=== PATIENT | female | born 1945 | race African-American/Black ===

== ENCOUNTER 2016-09-24 12:18 | Day surgery (SDC) | payer MEDICARE, OTHER ==
[~2016-09-24] VITALS: Ht 162.6 cm; Wt 66.5 kg
[~2016-09-24 12:18] MED LIST: ASPI81 PO; GLUCTAB PO; HYDR-2768 PO; METH750T2 PO; MOBI15TA PO; ROSU20 PO
[2016-09-24] MEDS ORDERED: NS 1000P @30 MLS/HR (KVO) IV SCH (13:00)
[2016-09-24 13:05] VITALS: BP 115/89; PULSE 110; RESP 18; TEMP 98.4; O2SAT 99
[2016-09-24] MEDS ORDERED: METF500T PO (13:17)
[2016-09-24] MEDS ORDERED: LORA1TAB12 PO (13:17)
[2016-09-24] MEDS ORDERED: GLIM2TAB PO (13:17)
[2016-09-24] MEDS ORDERED: ROSU40 PO (13:17)
[2016-09-24] MEDS ORDERED: ASPI1TAB69 PO (13:17)
[2016-09-24] MEDS ORDERED: HYDR25TA5 PO (13:17)
[2016-09-24] MEDS ORDERED: FLUT5SPR (13:17)
[2016-09-24] MEDS ORDERED: MULT1TAB84 PO (13:17)
[2016-09-24] MEDS ORDERED: AMOX875T PO (13:17)
[2016-09-24] MEDS ORDERED: HEPARIN-NS/PF INJ 500 ML ONE (13:23)
[2016-09-24] MEDS ORDERED: NITROGLYCERIN INJ 5 ML ONE (13:23)
[2016-09-24] MEDS ORDERED: MIDAZOLAM HCL 2 MG/2 ML VIAL ONE (13:23)
[2016-09-24] MEDS ORDERED: HEPARIN SODIUM - IV 10,000 UNITS/10 ML VIAL ONE (13:23)
[2016-09-24 13:34] LABS: AUTOMATED NEUTROPHIL # 4.3 TH/MM3 (1.8-7.7); BASOPHIL % 0.5 % (0.0-2.0); EOSINOPHIL # 0.1 TH/MM3 (0-0.4); EOSINOPHIL % 1.3 % (0.0-4.0); HEMATOCRIT 43.5 % (35.0-46.0); HEMO FLAGS DIFF FINAL; LYMPH % 31.4 % (9.0-44.0); LYMPHOCYTE # 2.3 TH/MM3 (1.0-4.8); MEAN CELL VOLUME 85.5 FL (80.0-100.0); MEAN CORPUSCULAR HEMOGLOBIN 28.3 PG (27.0-34.0); MEAN CORPUSCULAR HGB CONC 33.1 % (32.0-36.0); MONO % 8.4 % (0.0-8.0); NEUT % 58.4 % (16.0-70.0); PLATELET COUNT 380 TH/MM3 (150-450); RED BLOOD COUNT 5.09 MIL/MM3 (4.00-5.30); RED CELL DISTRIBUTION WIDTH 14.6 % (11.6-17.2); WHITE BLOOD COUNT 7.3 TH/MM3 (4.0-11.0)
[2016-09-24 13:48] LABS: APTT (PATIENT) 24.5 SEC (24.3-30.1); PROTHROMBIN TIME - PATIENT 10.9 SEC (9.8-11.6)
[2016-09-24 13:55] LABS: BICARBONATE 28.9 MEQ/L (21.0-32.0); POTASSIUM 3.6 MEQ/L (3.5-5.1)
[2016-09-24] MEDS ORDERED: MISC INFORMATION XX ONE (14:15)
[2016-09-24] MEDS ORDERED: BACITRACIN OINT 0.9 GM PKT TOP ONE (14:15)
[2016-09-24] MEDS ORDERED: oxyCODONE/ACETAMINOPHEN 5 MG/325 MG TAB PO PRN ×2 (14:15)
[2016-09-24] MEDS ORDERED: ONDANSETRON HCL 4 MG/2 ML VIAL IVP PRN (14:15)
[2016-09-24] MEDS ORDERED: SODIUM CHLOR 0.9% 1000 ML INJ 1,000 ML IV SCH (15:00)
[2016-09-24] MEDS ORDERED: IOHEXOL 350 MG/ML 100 ML BTL (for Cath Lab) OTHER ONE (16:01)
--- NOTE | 2016-09-25 07:02 | MB ---
cc: OLEGARIO SUTTON MD, HANSCY M.D. DRIGGERS, WESLEY M.D. DATE OF CONSULTATION 09/24/2016 REASON FOR CONSULTATION Wide complex tachyarrhythmia, symptomatic. History of Present Illness 8 Mrs. Payton is a 71-year-old -[place] female with history of high blood pressure, diabetes mellitus, hyperlipidemia, began a couple of days ago with tachyarrhythmia and chest tightness. She was in the supermarket, felt like she was going to pass out. She called Dr. Jose and went to his office. She was found with a wide complex tachyarrhythmia. That resolved. She was sent for a stress test at [facility]. The study was performed by Dr. Sutton. After less than a minute on the treadmill, the patient developed a wide complex tachyarrhythmia with a rate of around 170 beats per minute. That resolved with carotid sinus massage. Left heart catheterization was performed that indicated no occlusion, normal ejection fraction. I was consulted for evaluation and management. The chart was reviewed. The patient was evaluated. ALLERGIES NAPROXEN. TRAMADOL. SOCIAL HISTORY Negative for smoking and drinking. FAMILY HISTORY Noncontributory to her current medical condition. MEDICATIONS 1. Lorazepam. 2. Metformin 500 mg p.o. three times a day. 3. Flonase. 4. Crestor 40 mg a day. 5. She is on multivitamin. 6. Aspirin 81 mg a day. 7. Glimepiride 2 mg a day. 8. Hydrochlorothiazide 25 mg a day. 9. She is taking amoxicillin 850 mg twice per day for upper respiratory infection. REVIEW OF SYSTEMS Currently she refers no chest pain, no chest discomfort. No palpitation. No fever. PHYSICAL EXAMINATION GENERAL: Alert, fully oriented, pleasant. VITAL SIGNS: Her blood pressure is 115/89, pulse currently is around 68, respiratory rate 18. LUNGS: Ventilated. CARDIOVASCULAR: S1, S2. No gallop, no murmur. ABDOMEN: Soft. No mass. No bruit. EXTREMITIES: There is he immobilization of the right hand post-cardiac catheterization. ELECTROCARDIOGRAM Shows sinus rhythm but tracing from a Dr. Sutton's shows wide complex tachyarrhythmia with short VA time. LABORATORY DATA Hemoglobin is 14.4, white blood cell 7.3. Potassium 3.6, creatinine 1.13. INR 1.0. ASSESSMENT AND RECOMMENDATIONS Mrs. Payton has recurrent episodes of tachyarrhythmia. She is symptomatic. Apparently she does not remember any previous episode in her younger age. I am not sure this is an outflow tract tachyarrhythmia neither. At this point I had a long conversation with her and her daughter. Electrophysiology study and possible ablation discussed. The risks, the nature and the benefit of the procedure were clearly stated to her. Risks include pneumothorax, cardiac perforation, stroke and even . She understood and agreed to proceed. She is going to be discharged home and readmitted on Saturday afternoon. Lauryn Blankenship MD HS/SSB /5:32 PM /6:40 AM
--- NOTE | 2016-09-25 12:22 | MA ---
cc: LOEGARIO YOUSSEF MD DATE 09/24/2016 PROCEDURE PERFORMED 1. Fluoroscopy with interpretation 2. Coronary angiography 3. Left heart catheterization 4. Left ventriculography METHOD The risks, benefits and alternatives discussed with the patient. The patient understood and consented to the procedure. The patient was brought into the catheterization lab and placed on the catheterization table. The right wrist was prepped and draped in a sterile fashion. Right wrist was anesthetized with 2% lidocaine. Right radial artery was cannulated. A 6-Divehi 7 cm sheath was placed without difficulty. CORONARY ANGIOGRAPHY 1. Left main coronary artery is angiographically normal. 2. Left anterior descending coronary artery angiographically normal. 3. Left circumflex gives rise to an obtuse marginal branch and is angiographically normal. 4. The right coronary is a dominant vessel giving rise to a posterior descending coronary artery. 5. Right coronary is angiographically normal. LEFT HEART CATHETERIZATION An intraventricular hemodynamics measured at 110/5 mmHg. LEFT VENTRICULOGRAPHY Left ventricular ejection fraction visually estimated at 70%. No regional wall motion abnormalities. CONCLUSIONS 1. Angiographically normal coronary arteries. 2. Normal left ventricular systolic function. PLAN Reviewed the strips from the exercise stress test with Dr. Blankenship. It appears to be more consistent with SVT with aberrancy via an accessory pathway. I would like to officially consult Dr. Blankenship for consideration of either conservative approach with beta tommy versus EP study with a possible ablation. MD KAMI Fonseca/MATT /2:36 PM /12:15 PM
== END 2016-09-24 19:27 | disposition home or self-care (01) ==
LOC: HCAT 12:18 → HDIC 12:22 → HCAT 19:27
PROVIDERS: ATTEND Internal Medicine
DX: I47.2 Ventricular tachycardia (principal); I47.1 Supraventricular tachycardia; I70.0 Atherosclerosis of aorta; I12.9 Hypertensive chronic kidney disease with stage 1 through stage 4 chronic kidney disease, or unspecified chronic kidney disease; N18.2 Chronic kidney disease, stage 2 (mild); E11.21 Type 2 diabetes mellitus with diabetic nephropathy; E78.5 Hyperlipidemia, unspecified; Z79.82 Long term (current) use of aspirin; Z79.84 Long term (current) use of oral hypoglycemic drugs
CPT/HCPCS: 80048; 85025; 85610; 85730; 86850; 86900; 86901; 93458; C1769; C1893; J1644; J2250; J3010; Q9967

== ENCOUNTER 2016-09-26 13:34 | Day surgery (SDC) | payer MEDICARE ==
[~2016-09-26] VITALS: Ht 162.6 cm; Wt 65.6 kg
[~2016-09-26 13:34] MED LIST changes: +AMOX875T PO; +ASPI1TAB69 PO; -ASPI81 PO; +FLUT5SPR; +GLIM2TAB PO; -GLUCTAB PO; -HYDR-2768 PO; +LORA1TAB12 PO; -METH750T2 PO; -MOBI15TA PO; +MULT1TAB84 PO; -ROSU20 PO; +ROSU40 PO
[2016-09-26] MEDS ORDERED: SODIUM CHLORID 0.9% 500 ML IV SCH (14:00)
[2016-09-26] MEDS ORDERED: INSULIN HUMAN REGULAR 1,000 UNITS/10 ML VIAL SQ PRN (14:00)
[2016-09-26] MEDS ORDERED: LORazepam 1 MG TAB SL SCH (14:00)
[2016-09-26] MEDS ORDERED: LACTATED RINGER'S 1000 ML IV SCH (14:00)
[2016-09-26] MEDS ORDERED: METOPROLOL TARTRATE 25 MG TAB PO PRN (14:00)
[2016-09-26 14:10] VITALS: BP 138/94; PULSE 92; RESP 18; TEMP 98.7; O2SAT 99
[2016-09-26 14:42] LABS: AUTOMATED NEUTROPHIL # 3.6 TH/MM3 (1.8-7.7); BASOPHIL # 0.1 TH/MM3 (0-0.2); BASOPHIL % 0.8 % (0.0-2.0); EOSINOPHIL # 0.1 TH/MM3 (0-0.4); HEMATOCRIT 40.6 % (35.0-46.0); HEMO FLAGS DIFF FINAL; LYMPH % 35.8 % (9.0-44.0); LYMPHOCYTE # 2.4 TH/MM3 (1.0-4.8); MEAN CELL VOLUME 85.2 FL (80.0-100.0); MEAN CORPUSCULAR HGB CONC 34.1 % (32.0-36.0); MONO % 7.2 % (0.0-8.0); NEUT % 55.2 % (16.0-70.0); PLATELET COUNT 429 TH/MM3 (150-450); RED BLOOD COUNT 4.77 MIL/MM3 (4.00-5.30); RED CELL DISTRIBUTION WIDTH 14.7 % (11.6-17.2); WHITE BLOOD COUNT 6.6 TH/MM3 (4.0-11.0)
[2016-09-26 14:44] LABS: APTT (PATIENT) 23.8 SEC (24.3-30.1)
[2016-09-26 15:03] LABS: BICARBONATE 25.7 MEQ/L (21.0-32.0); POTASSIUM 3.3 MEQ/L (3.5-5.1)
[2016-09-26] MEDS ORDERED: PROPOFOL 200 MG/20 ML AMP IV ONE (17:20)
[2016-09-26] MEDS ORDERED: MIDAZOLAM HCL 2 MG/2 ML VIAL ONE (17:21)
[2016-09-26] MEDS ORDERED: ISOPROTERENOL HCL 1 MG/5 ML AMP ONE (17:22)
[2016-09-26] MEDS ORDERED: LIDOCAINE HCL 1% 50 ML VIAL INFIL PRN (18:45)
[2016-09-26] MEDS ORDERED: ATROPINE SULFATE 1 MG/ML VIAL IV PRN (18:45)
[2016-09-26] MEDS ORDERED: oxyCODONE/ACETAMINOPHEN 5 MG/325 MG TAB PO PRN ×2 (18:45)
[2016-09-26] MEDS ORDERED: METOCLOPRAMIDE HCL 10 MG/2 ML VIAL IV PRN (18:45)
[2016-09-26] MEDS ORDERED: ONDANSETRON HCL 4 MG/2 ML VIAL IV PRN (18:45)
[2016-09-26] MEDS ORDERED: BACITRACIN OINT 0.9 GM PKT TOP ONE (18:45)
[2016-09-26] MEDS ORDERED: SODIUM CHLOR 0.9% 250 ML INJ 250 ML IV PRN (18:45)
[2016-09-26] MEDS ORDERED: LORazepam 2 MG/ML VIAL IV PRN (18:45)
[2016-09-26] MEDS ORDERED: APIX5TAB PO (18:58)
[2016-09-26] MEDS ORDERED: LORazepam 1 MG TAB PO PRN (19:00)
[2016-09-26 21:40] VITALS: BP 122/72; PULSE 81; RESP 18; TEMP 98.2; O2SAT 99
[2016-09-26 21:41] VITALS: PULSE 80
[2016-09-26 22:00] VITALS: PULSE 72
[2016-09-26] MEDS: APIXABAN 5 MG TABLET PO SCH (22:26)
[2016-09-26] MEDS: AMOXICILLIN 875 MG TAB PO SCH (22:26)
[2016-09-26 23:00] VITALS: PULSE 70
--- NOTE | 2016-09-26 23:03 | EKG ---
Date Performed: 09/26/2016 Time Performed: 14:33:04 PTAGE: 71 years EKG: Sinus rhythm . Poor R wave progression - probable normal variant Borderline ECG PREVIOUS TRACING : 10/15/2012 15.14 Compared to the previous tracing, PRWP is new, which may b e lead placement DOCTOR: Rakesh Zazueta Interpretating Date/Time 09/26/2016 23:02:25
[2016-09-27] VITALS (10 sets, daily range): BP systolic 120–125; BP diastolic 67–72; PULSE 62–90; RESP 18; TEMP 98.2–98.9; O2SAT 98–100
--- NOTE | 2016-09-27 08:53 | HHI.PR ---
Subjective Remarks Feeling ok. Want something to eat Objective Vital Signs Date Time Temp Pulse Resp B/P Pulse Ox O2 Delivery O2 Flow Rate FiO2 09/27/16 08:07 98.9 65 18 124/67 100 09/27/16 06:00 67 09/27/16 05:00 90 09/27/16 04:00 66 09/27/16 04:00 98.7 72 18 125/68 99 09/27/16 03:00 62 09/27/16 02:00 66 09/27/16 01:00 66 09/27/16 00:00 98.2 70 18 120/72 98 09/27/16 00:00 67 09/26/16 23:00 70 09/26/16 22:00 72 09/26/16 21:41 80 09/26/16 21:40 98.2 81 18 122/72 99 09/26/16 19:27 Room Air 09/26/16 14:10 98.7 92 18 138/94 99 Result Diagram: 09/26/16 1416 09/26/16 1416 Imaging Alert, fully oriented Lungs: ventilated Heart: S1, S2 regular Abdomen: ssoft, no mass Ext: no edema Current Medications Medications (Trade) Dose Ordered Sig/Reddy Route Start Time Stop Time Status Last Admin Lactated Ringer's 1,000 ml @ 30 mls/hr Q24H IV 09/26/16 14:00 (NS 500 ml Inj) 500 ml @ 30 mls/hr [id number] IV 09/26/16 14:00 09/27/16 13:59 09/26/16 14:00 (Percocet 5-325 Mg) 1 tab Q4H PRN PO 09/26/16 18:45 (Percocet 5-325 Mg) 2 tab Q4H PRN PO 09/26/16 18:45 09/26/16 19:36 (Ativan Inj) 0.5 mg UNSCH PRN IV 09/26/16 18:45 09/27/16 18:44 Atropine Sulfate 0.5 mg 0.5 mg UNSCH PRN IV 09/26/16 18:45 (NS 250 ml Inj) 250 ml @ 500 mls/hr ONCE PRN IV 09/26/16 18:45 09/27/16 18:44 (Reglan Inj) 10 mg Q4H PRN IV 09/26/16 18:45 (Zofran Inj) 4 mg Q4H PRN IV 09/26/16 18:45 (Xylocaine 1% Inj (50 ml)) 10 ml UNSCH PRN INFIL 09/26/16 18:45 09/27/16 18:44 (Trimox) 875 mg BID PO 09/26/16 21:00 09/26/16 22:26 (Amaryl) 2 mg DAILY PO 09/27/16 09:00 (Ativan) 1 mg BID PRN PO 09/26/16 19:00 (Theragran M Tab) 1 tab DAILY PO 09/27/16 09:00 (Eliquis) 5 mg BID PO 09/26/16 21:00 09/26/16 22:26 (Lipitor) 80 mg DAILY PO 09/27/16 09:00 Assessment and Plan Problem List: (1) Atrial fibrillation Status: Acute Plan: SP EP study. Afib induced Anticoagulation initiated Will be DH and schedule for ablation. case discussed with patient as well as Lauryn Napoles MD Sep 27, 2016 08:53
[2016-09-27] MEDS ORDERED: ATORVASTATIN 80 MG TAB PO SCH (09:00)
[2016-09-27] MEDS ORDERED: NON-FORMULARY DRUG (Rosuvastatin (Crestor) 40 MG) PO SCH (09:00)
[2016-09-27] MEDS ORDERED: GLIMEPIRIDE 2 MG TAB PO SCH (09:00)
[2016-09-27] MEDS ORDERED: MULTIVITAMINS/MINERALS THERAPEUTIC TAB PO SCH (09:00)
[2016-09-27] MEDS ORDERED: METO50TA11 PO (09:01)
--- NOTE | 2016-09-27 09:18 | MA ---
cc: LEXI OSEI M.D. DATE: 09/27/2016 PROCEDURE Electrophysiology study, CS cannulation, repeat electrophysiology study on Isuprel infusion. INDICATION Mrs. Payton is a 71-year-old -[place] female with history of supraventricular tachyarrhythmia, chest pain, shortness of breath, to undergo electrophysiology study. The risks, the nature and the benefit of the procedure are clearly stated to her. The risks include pneumothorax, cardiac perforation, stroke and even . The patient understood and agreed to proceed. PROCEDURE After written informed consent was obtained, the patient was brought to the EP lab where she was prepped and draped in the usual sterile fashion. Conscious sedation was initiated and maintained throughout the procedure by anesthesiologist. Once sedation was verified, the right and left inguinal area was anesthetized with 2% Xylocaine. Using modified Seldinger technique, the left femoral vein was cannulated on three occasions, three guidewires were advanced. Over the wire three 5-Slovenian Hemaquet were advanced and the right femoral vein was cannulated on two occasions, two guidewire were advanced. Over the wire a 6 and a 8-Slovenian Hemaquet were advanced. Then under fluoroscopic guidance through the 5 and 6-Slovenian Hemaquet, four 5-Slovenian Mary Carmen curved quadripolar electrophysiology catheter were advanced and placed around the His, upper right atrium, coronary sinus and right ventricular apex. Basic interval was measured, they were within normal limits. At this point atrial pacing protocol was performed. Atrial pacing protocol consists of incremental atrial pacing as well as program stimulation with 410 cycle length and up to one excess stimuli delivered. During atrial pacing protocol and multiple occasion, atrial fibrillation was induced. Again, it was ___ or cardioverted. And then ___ coronary sinus pacing also atrial fibrillation was induced, with aberrancy. Then ventricular pacing protocol was performed. There was VA conduction, it was concentric. Isuprel infusion was initiated, atrial fibrillation was induced. At that point the procedure was complete. All catheters were removed. The patient has ongoing atrial fibrillation over 48 hours of duration because atrial fibrillation and tachyarrhythmia was recorded for weeks. At this point I am going to anticoagulate her and then schedule in 3-4 weeks for electrophysiology study and atrial fibrillation ablation. No incident report. The patient tolerated the procedure. Blood loss was minimal. 1. Electrocardiogram. At baseline the patient was in sinus. Postprocedure echocardiogram was unchanged. 2. Basic interval. Base cycle length was around 780 millisecond. AH at 140 and HV around 50 milliseconds. 3. Atrial pacing protocol. Wenckebach of the node cannot reach at the beginning because of atrial fibrillation induction. Subsequently Wenckebach was around 380 milliseconds. 4. Ventricular pacing protocol. There was VA conduction, it was concentric. 5. Tachyarrhythmia. Atrial fibrillation was induced. CONCLUSION Atrial fibrillation. COMMENT AND RECOMMENDATION Mrs. Payton will be kept overnight for observation. Will be discharged in the morning. Anticoagulation will be initiated. Beta-tommy will be given also. MD ISABELLA Valenzuela/OSIEL /8:48 AM /8:56 AM
[2016-09-27] MEDS: APIXABAN 5 MG TABLET PO SCH (09:22)
[2016-09-27] MEDS: AMOXICILLIN 875 MG TAB PO SCH (09:22)
--- NOTE | 2016-09-27 19:29 | EKG ---
Date Performed: 09/27/2016 Time Performed: 04:45:02 PTAGE: 71 years EKG: Sinus rhythm Normal ECG PREVIOUS TRACING : 09/26/2016 14.33 Compared to prior tracing no significant change DOCTOR: Rakesh Zazueta Interpretating Date/Time 09/27/2016 19:29:15
== END 2016-09-27 11:27 | disposition home or self-care (01) ==
LOC: HCAT 13:34 → HDIC 13:37 → HCIS 21:42 → HCAT 09-27 11:27
PROVIDERS: ATTEND Internal Medicine Interventional Cardiology
DX: I48.91 Unspecified atrial fibrillation (principal); I12.9 Hypertensive chronic kidney disease with stage 1 through stage 4 chronic kidney disease, or unspecified chronic kidney disease; N18.2 Chronic kidney disease, stage 2 (mild); Z99.2 Dependence on renal dialysis; Z79.01 Long term (current) use of anticoagulants
CPT/HCPCS: 00537; 80048; 85025; 85610; 85730; 93005; 93620; 93623; C1730; C1732; J2250; J3010; J7040

== ENCOUNTER 2016-10-24 12:58 | Day surgery (SDC) | payer MEDICARE ==
[~2016-10-24] VITALS: Ht 162.6 cm; Wt 64.6 kg
[~2016-10-24 12:58] MED LIST changes: +APIX5TAB PO; -ASPI1TAB69 PO; +METO50TA11 PO
[2016-10-24] MEDS ORDERED: METOPROLOL TARTRATE 25 MG TAB PO PRN (14:00)
[2016-10-24] MEDS ORDERED: INSULIN HUMAN REGULAR 1,000 UNITS/10 ML VIAL SQ PRN (14:00)
[2016-10-24] MEDS ORDERED: SODIUM CHLORID 0.9% 500 ML IV SCH (14:00)
[2016-10-24] MEDS ORDERED: LACTATED RINGER'S 1000 ML IV SCH (14:00)
[2016-10-24] MEDS ORDERED: SODIUM CHLORID 0.9% 500 ML INJ 500 ML IV SCH (14:00)
[2016-10-24] MEDS ORDERED: LORazepam 1 MG TAB SL SCH (14:00)
[2016-10-24 14:20] VITALS: BP 151/81; PULSE 84; RESP 16; TEMP 98.4; O2SAT 100
[2016-10-24 14:22] LABS: AUTOMATED NEUTROPHIL # 4.7 TH/MM3 (1.8-7.7); BASOPHIL % 0.5 % (0.0-2.0); EOSINOPHIL # 0.1 TH/MM3 (0-0.4); EOSINOPHIL % 1.9 % (0.0-4.0); HEMATOCRIT 39.8 % (35.0-46.0); HEMO FLAGS DIFF FINAL; LYMPH % 29.1 % (9.0-44.0); LYMPHOCYTE # 2.2 TH/MM3 (1.0-4.8); MEAN CELL VOLUME 86.1 FL (80.0-100.0); MEAN CORPUSCULAR HEMOGLOBIN 28.5 PG (27.0-34.0); MEAN CORPUSCULAR HGB CONC 33.1 % (32.0-36.0); MONO % 7.7 % (0.0-8.0); NEUT % 60.8 % (16.0-70.0); PLATELET COUNT 343 TH/MM3 (150-450); RED BLOOD COUNT 4.63 MIL/MM3 (4.00-5.30); RED CELL DISTRIBUTION WIDTH 14.6 % (11.6-17.2); WHITE BLOOD COUNT 7.7 TH/MM3 (4.0-11.0)
[2016-10-24 14:28] LABS: APTT (PATIENT) 27.5 SEC (24.3-30.1); PROTHROMBIN TIME - PATIENT 11.4 SEC (9.8-11.6)
[2016-10-24 14:52] LABS: BICARBONATE 27.9 MEQ/L (21.0-32.0); POTASSIUM 3.4 MEQ/L (3.5-5.1)
[2016-10-24] MEDS ORDERED: PROPOFOL 200 MG/20 ML AMP IV ONE (15:31)
[2016-10-24] MEDS ORDERED: HEPARIN-NS/PF INJ 500 ML ONE (15:51)
[2016-10-24] MEDS ORDERED: HEPARIN-D5W INJ 250 ML ONE (16:08)
[2016-10-24] MEDS ORDERED: ISOPROTERENOL HCL 1 MG/5 ML AMP ONE (16:08)
[2016-10-24] MEDS ORDERED: HEPARIN SODIUM - IV 10,000 UNITS/10 ML VIAL ONE (16:08)
[2016-10-24] MEDS ORDERED: LEVOFLOXACIN 500 MG PREMIX INJ 100 ML IV ONE (16:49)
[2016-10-24] MEDS ORDERED: PROTAMINE SULFATE 50 MG/5 ML VIAL ONE (18:11)
--- NOTE | 2016-10-24 18:36 | PD.CARD ---
Atrial Fibrillation Cryo Study PROCEDURE DATE: Oct 24, 2016 PROCEDURE PERFORMED Electrophysiology study, CS cannulation, 3-D mapping, transeptal approach, right and left heart catheterization, cryoablation of atrial fibrillation, pulmonary vein isolation, posterior ablation, anterior ablation, repeat electrophysiology study on Isuprel infusion, intracardiac echo. Very complex case. INDICATIONS FOR PROCEDURE Ms. Payton is a 71-year-old female with atrial fibrillation, previous hospitalization, on anticoagulation, referred for electrophysiology study and ablation. The risks, the nature and the benefit of the procedure are clearly stated to her. The risks include pneumothorax, cardiac perforation, stroke, need for open heart surgery and even . The patient understood and agreed to proceed. PROCEDURE As written informed consent was obtained prior to esophageal echo, the patient was kept on the table where she was prepped and draped in the usual sterile fashion. Conscious sedation was initiated and throughout the procedure by the anesthesiologist. Once sedation was verified, the right and left inguinal area was anesthetized with 2% Xylocaine. Using modified Seldinger technique, the left femoral vein was cannulated on three occasions and three guidewires were advanced over the wire, one 6, one 7, and one 10-Fijian Hemaquet were advanced. Then the left femoral artery was done on one occasion, one guidewire was advanced over the wire. A 4-Fijian Hemaquet was advanced. Then the right femoral vein was cannulated on one occasion and one guidewire was advanced over the wire. An 8-Fijian Hemaquet was advanced. Then under fluoroscopic guidance through the 6 and 7-Fijian Hemaquet, two 5- Fijian Mary Carmen curved quadripolar electrophysiology catheters were advanced and positioned on the His as well as coronary sinus. The patient was in sinus rhythm. Basic interval was measured. They were all within normal limits. Then through the 10-Fijian Hemaquet, a Earbits-Jacobs AcuNav intracardiac echo catheter was advanced and placed at the right atrium. Multiple views were obtained. There was no pericardial effusion. Pulmonary vein was seen. The atrial septum was visualized. Then the 8-Fijian Hemaquet in the right femoral vein was exchanged for an Agilis transseptal sheath that was placed all the way to the superior vena cava. Through this sheath a Bohemia needle was advanced. Then the sheath, the dilator and the needle were pulled back progressively until foci engaged. Once the needle was advanced, RF was delivered for 2 seconds. I was able to cross into the left atrium. Once the needle was crossed, the dilator was advanced. Once the dilator was crossed, the sheath was advanced. Once the sheath crossed , the dilator and needle were removed. An intracardiac echo showed the sheath in good position. The patient already received 10,000 units of heparin. The goal is to get an ACT around 350 during the ablation. Through this sheath a BearTailtronic Achieve catheter was advanced. Using [employer] endocardial solution mapping system a three-dimensional configuration of the left atrium was obtained. Points were taken at the left superior and inferior vein, right superior and inferior vein, mitral valve, and appendage. Then at this point I decided to proceed with cryoablation. Through the sheath a 0.035 wire was advanced. I did exchange the Agilis sheath for a [employer] flex sheath. I decided to use a 28mm balloon. The balloon was advanced over the wire. First I did engage the left superior vein. The balloon was inflated, complete occlusion obtained. CryoEnergy was delivered for 3 and 3 minutes. Temperature reached -54. Then I did engage the left inferior vein, occlusion obtained. Venography showed complete occlusion and CryoEnergy was delivered for 3 and 3 minutes. Temperature was around -48 to -46. Then the right inferior was engaged, complete occlusion obtained. Temperature reach -52 for 3 and 3 minutes. Then the right superior was engaged. Before CryoEnergy of the right veins, the His catheter was placed at the left and the right subclavian. Phrenic nerve pacing was performed. There was diaphragmatic stimulation. That is going to be used for phrenic nerve monitoring during cryoablation. I did cryoablate the right superior vein. There was no loss of phrenic nerve movement , diaphragmatic movement. Phrenic nerve was intact. The temperature dropped to -54 for 3 and 3 minutes. At that point I removed the balloon. The Achieve catheter was advanced into the veins. . Pacing from the vein showed no conduction to the atrium. Pacing from the atrium showed no conduction to the veins. The patient at this point received Isuprel infusion for over 10 minutes at 20mcg. No tachyarrhythmia was induced, no conduction resumed. Post-Isuprel no conduction resumed either. At that point the procedure was complete. All catheters were removed, the transeptal sheath was exchanged for a 12-Fijian Hemaquet. Intracardiac echo showed pericardial effusion, still good flow in the pulmonary vein. No incident reported. The patient tolerated the procedure. Blood loss minimal. 1. Electrocardiogram: At baseline the patient was in sinus. Postprocedure the patient in sinus. 2. Basic Interval: Base cycle length was around 840 milliseconds. AH 82. HV 54 3. Tachyarrhythmia: Atrial fibrillation was mapped and ablated. Ablation was successful. CONCLUSION Successful electrophysiology study, mapping and cryo ablation of atrial fibrillation, pulmonary vein isolation, repeat electrophysiology study on Isuprel infusion. COMMENT AND RECOMMENDATIONS The patient is going to be transferred to the telemetry unit, will be observed, and when stable can be discharged home. Lauryn Blankenship MD Oct 24, 2016 18:36
[2016-10-24] MEDS ORDERED: LORazepam 2 MG/ML VIAL IV PRN (18:45)
[2016-10-24] MEDS ORDERED: ATROPINE SULFATE 1 MG/ML VIAL IV PRN (18:45)
[2016-10-24] MEDS ORDERED: LIDOCAINE HCL 1% 50 ML VIAL INFIL PRN (18:45)
[2016-10-24] MEDS ORDERED: LORazepam 1 MG TAB PO PRN (18:45)
[2016-10-24] MEDS ORDERED: ONDANSETRON HCL 4 MG/2 ML VIAL IV PRN (18:45)
[2016-10-24] MEDS ORDERED: METOCLOPRAMIDE HCL 10 MG/2 ML VIAL IV PRN (18:45)
[2016-10-24] MEDS ORDERED: BACITRACIN OINT 0.9 GM PKT TOP ONE (18:45)
[2016-10-24] MEDS ORDERED: oxyCODONE/ACETAMINOPHEN 5 MG/325 MG TAB PO PRN ×2 (18:45)
[2016-10-24] MEDS ORDERED: SODIUM CHLOR 0.9% 250 ML INJ 250 ML IV PRN (18:45)
[2016-10-24] MEDS ORDERED: DO NOT ADM ANY ANTICOAGULANT DRUGS XX PRN (19:45)
[2016-10-24] MEDS ORDERED: fentaNYL CITRATE 250 MCG/5 ML AMP ONE (19:56)
[2016-10-24 20:11] VITALS: BP 136/80; PULSE 81; RESP 18; TEMP 97.8; O2SAT 99
[2016-10-24 20:30] VITALS: BP 124/73; PULSE 81; RESP 18; O2SAT 99
[2016-10-24 21:00] VITALS: BP 126/77; PULSE 83; RESP 18; O2SAT 98
[2016-10-24 21:30] VITALS: BP 117/74; PULSE 85; RESP 18; O2SAT 98
[2016-10-24 23:00] VITALS: BP 109/66; PULSE 88; RESP 18; O2SAT 98
[2016-10-25] VITALS: BP 117/66; PULSE 86; RESP 18; TEMP 97.9; O2SAT 98
[2016-10-25] MEDS: APIXABAN 5 MG TABLET PO SCH ×2 (00:29→08:50)
[2016-10-25 03:56] LABS: APTT (PATIENT) 25.2 SEC (24.3-30.1); INTERNATIONAL NORMALIZED RATIO 1.1 RATIO; PROTHROMBIN TIME - PATIENT 11.7 SEC (9.8-11.6)
[2016-10-25 05:00] VITALS: BP 108/68; PULSE 85; RESP 18; O2SAT 95
[2016-10-25 07:00] VITALS: PULSE 80
[2016-10-25 08:00] VITALS: BP 100/56; PULSE 82; RESP 16; TEMP 98.4; O2SAT 97
[2016-10-25] MEDS ORDERED: METOPROLOL SUCCINATE 50 MG EXTENDED RELEASE TAB PO SCH (09:00)
[2016-10-25] MEDS ORDERED: NON-FORMULARY DRUG (Rosuvastatin (Crestor) 40 MG) PO SCH (09:00)
[2016-10-25] MEDS ORDERED: ATORVASTATIN 80 MG TAB PO SCH (09:00)
[2016-10-25] MEDS ORDERED: GLIMEPIRIDE 2 MG TAB PO SCH (09:00)
[2016-10-25] MEDS ORDERED: MULTIVITAMINS/MINERALS THERAPEUTIC TAB PO SCH (09:00)
--- NOTE | 2016-10-25 10:08 | HHI.PR ---
Subjective Remarks Feeling ok. No palpitation Objective Vital Signs Date Time Temp Pulse Resp B/P Pulse Ox O2 Delivery O2 Flow Rate FiO2 10/25/16 08:00 98.4 82 16 100/56 97 10/25/16 07:00 80 10/25/16 05:00 85 18 108/68 95 10/25/16 02:22 18 10/25/16 00:00 98 21 10/25/16 00:00 97.9 86 18 117/66 98 10/24/16 23:00 88 18 109/66 98 10/24/16 21:30 85 18 117/74 98 10/24/16 21:00 83 18 126/77 98 10/24/16 20:30 81 18 124/73 99 10/24/16 20:11 97.8 81 18 136/80 99 10/24/16 20:00 85 16 141/76 97 Room Air 10/24/16 19:45 97.3 79 15 144/78 97 Room Air 10/24/16 19:30 79 14 151/86 98 Room Air 10/24/16 19:15 78 14 150/89 99 Nasal Cannula 2 10/24/16 19:00 77 12 149/92 99 Nasal Cannula 2 10/24/16 18:55 97.7 78 12 149/85 99 Nasal Cannula 2 10/24/16 14:20 98.4 84 16 151/81 100 I/O 10/24/16 10/24/16 10/24/16 10/25/16 10/25/16 10/25/16 07:00 15:00 23:00 07:00 15:00 23:00 Intake Total 1060 ml Output Total 400 ml Balance 660 ml Intake Oral 610 ml IV Total 450 ml Output Urine Total 400 ml Stool Total 0 ml Result Diagram: 10/24/16 1350 10/24/16 1350 Imaging Alert, fully oriented lungs: ventilated Heart: S1, S2 Regular, no gallop Abdomen: soft, no mass Ext: no edema Current Medications Medications (Trade) Dose Ordered Sig/Reddy Route Start Time Stop Time Status Last Admin Lactated Ringer's 1,000 ml @ 30 mls/hr Q24H IV 10/24/16 14:00 Sodium Chloride 500 ml @ 30 mls/hr [id number] IV 10/24/16 14:00 10/25/16 13:59 (NS 500 ml Inj) 500 ml @ 30 mls/hr [id number] IV 10/24/16 14:00 (Percocet 5-325 Mg) 1 tab Q4H PRN PO 10/24/16 18:45 10/25/16 01:22 (Percocet 5-325 Mg) 2 tab Q4H PRN PO 10/24/16 18:45 (Ativan Inj) 0.5 mg UNSCH PRN IV 10/24/16 18:45 10/25/16 18:44 Atropine Sulfate 0.5 mg 0.5 mg UNSCH PRN IV 10/24/16 18:45 (NS 250 ml Inj) 250 ml @ 500 mls/hr ONCE PRN IV 10/24/16 18:45 10/25/16 18:44 (Reglan Inj) 10 mg Q4H PRN IV 10/24/16 18:45 (Zofran Inj) 4 mg Q4H PRN IV 10/24/16 18:45 (Xylocaine 1% Inj (50 ml)) 10 ml UNSCH PRN INFIL 10/24/16 18:45 10/25/16 18:44 (Eliquis) 5 mg BID PO 10/24/16 21:00 10/25/16 08:50 (Amaryl) 2 mg DAILY PO 10/25/16 09:00 10/25/16 08:50 (Ativan) 1 mg BID PRN PO 10/24/16 18:45 (Toprol Xl) 50 mg DAILY PO 10/25/16 09:00 (Theragran M Tab) 1 tab DAILY PO 10/25/16 09:00 10/25/16 08:50 (Lipitor) 80 mg DAILY PO 10/25/16 09:00 10/25/16 08:50 Miscellaneous Information ALL NURSING DEPARTME... UNSCH PRN XX 10/24/16 19:45 10/25/16 19:44 Assessment and Plan Problem List: (1) Atrial fibrillation Status: Acute Plan: SP ablation. Doing well No afib. No chest pain, no SOB Will be DH. Metoprolol DC Continue on anticoagulation Lauryn Blankenship MD Oct 25, 2016 10:08
--- NOTE | 2016-10-25 14:35 | EKG ---
Date Performed: 10/24/2016 Time Performed: 19:11:34 PTAGE: 71 years EKG: Sinus rhythm NORMAL ECG Compared to prior tracing no significant change PREVIOUS TRACING : 10/24/2016 14.15 DOCTOR: Ba Agustin Interpretating Date/Time 10/25/2016 14:34:26
--- NOTE | 2016-10-25 14:36 | EKG ---
Date Performed: 10/24/2016 Time Performed: 14:15:38 PTAGE: 71 years EKG: Sinus rhythm Normal ECG Compared to prior tracing no significant change PREVIOUS TRACING : 09/27/2016 04.45 DOCTOR: Ba Agustin Interpretating Date/Time 10/25/2016 14:34:35
--- NOTE | 2016-12-08 15:54 | ETE ---
Study Study Date:10/24/2016 STUDY CONCLUSIONS SUMMARY - Left ventricle: The cavity size was normal. Wall thickness was normal. Systolic function was normal. The estimated ejection fraction was in the range of 55% to 60%. Wall motion was normal; there were no regional wall motion abnormalities. - Aortic valve: No evidence of vegetation. - Mitral valve: No evidence of vegetation. - Left atrium: No evidence of thrombus in the atrial cavity or appendage. No evidence of thrombus in the atrial cavity or appendage. - Right atrium: No evidence of thrombus in the atrial cavity or appendage. - Atrial septum: No defect or patent foramen ovale was identified. Echo contrast study showed no [id number] atrial level shunt, at baseline or with provocation. - Tricuspid valve: No evidence of vegetation. - Pulmonic valve: No evidence of vegetation. If LV function is below 40, please consider prescribing an ACEI or ARB or document rationale for non-use. PROCEDURE DATA Consent: The risks, benefits, and alternatives to the procedure were explained to the patient and informed consent was obtained. Procedure: Initial setup. The patient was brought to the laboratory in the fasting state. Intravenous access was obtained. Surface ECG leads and pulse oximetric signals were monitored. Sedation. Conscious sedation was administered by cardiology staff. Transesophageal echocardiography. Topical anesthesia was obtained using viscous lidocaine. A transesophageal probe was inserted by the attending forepart laster. Image quality was good. Study completion: All IVs inserted during the procedure were removed. The patient tolerated the procedure well. There were no complications. Transesophageal echocardiography. 2D, complete spectral Doppler, and color Doppler. CARDIAC ANATOMY LEFT VENTRICLE: The cavity size was normal. Wall thickness was normal. Systolic function was normal. The estimated ejection fraction was in the range of 55% to 60%. Wall motion was normal; there were no regional wall motion abnormalities. AORTIC VALVE: Trileaflet; mildly thickened, mildly calcified leaflets. Cusp separation was normal. No evidence of vegetation. Doppler: No significant regurgitation. Aorta: - There was no atheroma. There was no evidence for dissection. Aortic root: The aortic root was not dilated. Ascending aorta: The ascending aorta was normal in size. Aortic arch: The aortic arch was normal in size. Descending aorta: The descending aorta was normal in size. MITRAL VALVE: Structurally normal valve. Leaflet separation was normal. No evidence of vegetation. Doppler: Trace regurgitation. LEFT ATRIUM: The atrium was normal in size. No evidence of thrombus in the atrial cavity or appendage. No evidence of thrombus in the atrial cavity or appendage. The appendage was morphologically a left appendage, multilobulated, and of normal size. Emptying velocity was normal. ATRIAL SEPTUM: No defect or patent foramen ovale was identified. Echo contrast study showed no [id number] atrial level shunt, at baseline or with provocation. RIGHT VENTRICLE: The cavity size was normal. Wall thickness was normal. Systolic function was normal. PULMONIC VALVE: Structurally normal valve. No evidence of vegetation. TRICUSPID VALVE: Structurally normal valve. Leaflet separation was normal. No evidence of vegetation. Doppler: Trace regurgitation. PULMONARY ARTERY: The main pulmonary artery was normal-sized. RIGHT ATRIUM: The atrium was normal in size. No evidence of thrombus in the atrial cavity or appendage. The appendage was morphologically a right appendage. PERICARDIUM: There was no pericardial effusion. Prepared and signed by Lauryn Blankenship [id number]
== END 2016-10-25 10:45 | disposition home or self-care (01) ==
LOC: HCAT 12:58 → HDIC 12:59 → HCVR 20:29 → HCAT 10-25 10:45
PROVIDERS: ATTEND Internal Medicine Interventional Cardiology
DX: I48.91 Unspecified atrial fibrillation (principal); I10 Essential (primary) hypertension; E11.9 Type 2 diabetes mellitus without complications; G47.30 Sleep apnea, unspecified; Z79.01 Long term (current) use of anticoagulants
CPT/HCPCS: 00537; 80048; 85002; 85025; 85610; 85730; 86850; 86900; 86901; 93005; 93312; 93320; 93325; 93613; 93623; 93656; 93662; C1730; C1731; C1732; C1733; J1644; J1956; J2720; J3010